=== PATIENT | male | born 1940 | race Caucasian/White ===

== ENCOUNTER 2018-01-09 17:08 | Emergency (ER) | payer OTHER, MEDICARE ==
[2018-01-09] MEDS ORDERED: OXYCODONE-ACETAMINOPHEN 5-325 MG TABLET PO ONE (17:25)
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
[2018-01-09 19:25] VITALS: BP 120/69
== END 2018-01-09 19:27 | disposition home or self-care (01) ==
LOC: ER 17:08
DX: M54.5 Low back pain (principal); M54.6 Pain in thoracic spine; R07.81 Pleurodynia; V49.40XA Driver injured in collision with unspecified motor vehicles in traffic accident, initial encounter; J81.1 Chronic pulmonary edema; E11.9 Type 2 diabetes mellitus without complications; I25.10 Atherosclerotic heart disease of native coronary artery without angina pectoris; I10 Essential (primary) hypertension; I25.2 Old myocardial infarction; Z85.118 Personal history of other malignant neoplasm of bronchus and lung; Z85.05 Personal history of malignant neoplasm of liver
CPT/HCPCS: 72110; 99284

== ENCOUNTER 2019-09-20 00:02 | Emergency (ER) | payer MEDICARE, OTHER ==
[2019-09-20 00:38] LABS: ABSOLUTE BASOPHILS # (AUTO) 0.1 10^3/uL (0.0-0.2); ABSOLUTE EOSINOPHILS # (AUTO) 0.1 10^3/uL (0.0-0.6); ABSOLUTE LYMPHOCYTES (AUTO) 1.6 10^3/uL (0.5-4.7); ABSOLUTE MONOCYTES (AUTO) 0.7 10^3/uL (0.1-1.4); ABSOLUTE NEUT (AUTO) 5.1 10^3/uL (1.7-8.2); BASOPHILS % (AUTO) 0.8 % (0-2); EOSINOPHILS % (AUTO) 0.9 % (0-6); HEMATOCRIT 52.1 % (37.9-51.0); HEMOGLOBIN 18.2 g/dL (13.5-17.0); LYMPHOCYTES % (AUTO) 21.2 % (13-45); MEAN CORPUSCULAR HEMOGLOBIN 29.5 pg (27.0-33.4); MEAN CORPUSCULAR HGB CONC 34.9 g/dL (32.0-36.0); MEAN CORPUSCULAR VOLUME 84 fl (80-97); MONOCYTES % (AUTO) 9.8 % (3-13); PLATELET COUNT 141 10^3/uL (150-450); RED BLOOD COUNT 6.17 10^6/uL (4.35-5.55); RED CELL DISTRIBUTION WIDTH 15.7 % (11.5-14.0); SEGMENTED NEUTROPHILS % (AUTO) 67.3 % (42-78); TOTAL CELLS COUNTED % (AUTO) 100 %; WHITE BLOOD COUNT 7.6 10^3/uL (4.0-10.5)
[2019-09-20 00:53] LABS: ALBUMIN 4.3 g/dL (3.5-5.0); ALKALINE PHOSPHATASE 114 U/L (38-126); ANION GAP 9 (5-19); ASPARTATE AMINO TRANSFERASE 25 U/L (17-59); BILIRUBIN,DIRECT 0.1 mg/dL (0.0-0.4); BILIRUBIN,TOTAL 1.1 mg/dL (0.2-1.3); BLOOD UREA NITROGEN 23 mg/dL (7-20); CALCIUM 9.6 mg/dL (8.4-10.2); CARBON DIOXIDE 31 mmol/L (22-30); CHLORIDE 98 mmol/L (98-107); GLUCOSE 127 mg/dL (75-110); POTASSIUM 3.5 mmol/L (3.6-5.0); TOTAL PROTEIN 7.4 g/dL (6.3-8.2)
[2019-09-20] MEDS ORDERED: IPRATROPIUM/ALBUTEROL 0.5-2.5 MG/3 ML AMPUL NEB ONE (01:03)
[2019-09-20] MEDS ORDERED: METHYLPREDNISOLONE INJ 125 MG/2 ML SDV IV ONE (01:03)
--- NOTE | 2019-09-20 01:03 | ER Document Report ---
ED General - General Chief Complaint: Shortness Of Breath Stated Complaint: TROUBLE BREATHING Time Seen by Provider: 09/20/19 00:28 Primary Care Provider: LEELEE KEATING MD [Primary Care Provider] - Follow up as needed - HPI Notes: Patient is a 79-year-old gentleman with a history of PVOD who presents to the emergency department for evaluation of shortness of breath. He states this is not a new problem for him. The patient states he was at his granddaughter's house. He started "shaking all over" and became extremely short of breath. He states tinnitus started when he felt like he had to urinate quickly. This is atypical trigger for his symptoms. He states that lasted 3 or 4 minutes. He s tates that he has these frequently, the last one was about a month ago. He states he stopped going to the emergency room or the hospital for these episodes as there was no treatment that was helpful. He was urged by his family members to come in, so he presents to the ER for further evaluation. He states that shortness of breath is at baseline. He is normally on 3 L per nasal cannula. He has had no fevers. No cough. No COVID exposures. He denies any pain with these episodes or at this time. He has been taking his medications as prescribed. He states he is seen both cardiology as well as pulmonology for these issues. He was told that it may be secondary to PVOD, or secondary to sca r tissue from his history of cancer. - Related Data Allergies/Adverse Reactions: No Known Allergies Allergy (Unverified 02/16/14 23:18) Past Medical History - General Information source: Patient - Social History Smoking Status: Former Smoker Family History: Reviewed & Not Pertinent - Past Medical History Cardiac Medical History: Reports: Hx Coronary Artery Disease, Hx Heart Attack - x2, Hx Hypercholesterolemia, Hx Hypertension Pulmonary Medical History: Reports: Other - Pulmonary venoocclusive disease Denies: Hx COPD Endocrine Medical History: Reports: Hx Diabetes Mellitus Type 2 Renal/ Medical History: Denies: Hx Peritoneal Dialysis Malignancy Medical History: Reports Hx Liver Cancer - A couple of years ago, Reports Hx Lung Cancer - Many years ago Past Surgical History: Reports: Hx Cardiac Catheterization, Hx Coronary Artery Bypass Graft - Immunizations Hx Diphtheria, Pertussis, Tetanus Vaccination: Yes Review of Systems - Review of Systems Cardiovascular: See HPI Respiratory: See HPI -: Yes All other systems reviewed and negative Physical Exam - Vital signs Vitals: Resp Pulse Ox 28 H 96 09/20/19 00:06 09/20/19 00:06 - Notes Notes: Is a very pleasant 79-year-old gentleman who appears his stated age in no acute distress. Vital signs reviewed, please refer to chart. Head is normocephalic, atraumatic. Pupils equal round, reactive to light. Neck is supple without meningismus. Heart is regular rate and rhythm. Lungs reveal diminished breath sounds with no wheezes, rales, rhonchi. Abdomen is soft, nontender, normoactive bowel sounds throughout. Extremities without cyanosis, clubbing. Posterior calves are nontender. Peripheral pulses are equal. Skin is warm and dry. Patient is awake, alert, neurological exam is nonfocal. Course - Re-evaluation Re-evalutation: 09/20/19 02:08 Patient presents to the emergency department for evaluation. He states that this is not a new problem for him. He states he is back to his baseline at this time, and insists that he wants to go home. I was able to convince him to stay for some blood work. Laboratory investigations are largely unremarkable. Patient's EKG fails to show any signs of ST elevation. The patient states he is back to baseline, believes it is all secondary to his PVOD, and feels improved. 09/20/19 02:17 I did discuss his x-ray findings with him. He states he is not had any injury to the right upper chest, denies any known history of rib fractures, and has no tenderness over that area. I explained to him that a small amount of fluid on the right side, did not have a clear etiology for this, but he has no other signs of infiltrative process. No significant leukocytosis. He does have some white blood cells in his urine. Given this as well as the urinary urgency and the linked to his shortness of breath with this, I am inclined to treat him for urinary tract infection. He is given his first dose of Keflex here and I will send him out with a prescription. He does not have a COPD history, I am not inclined to treat with steroids. He is to follow-up closely with primary care next week, have his urine rechecked. He is to return to the ER with worsening or new concerning symptoms of any sort. 09/20/19 02:25 Please note that patient did desaturate on his normal 3 L when getting up. I went back in to evaluate the patient. He rebounded quickly to 92%. Again the patient reiterates he has absolutely no symptoms different from his baseline. He still wishes to go home. He understands the importance of close follow-up. - Vital Signs Vital signs: Temp Pulse Resp BP Pulse Ox 19 118/71 95 09/20/19 02:01 09/20/19 02:01 09/20/19 02:01 - Laboratory Result Diagrams: 09/20/19 00:14 09/20/19 00:14 Laboratory results interpreted by me: 09/20/19 09/20/19 09/20/19 00:14 00:14 01:30 RBC 6.17 H Hgb 18.2 H Hct 52.1 H RDW 15.7 H Plt Count 141 L Potassium 3.5 L Carbon Dioxide 31 H BUN 23 H Creatinine 1.29 H Est GFR (MDRD) Non-Af 54 L Glucose 127 H Urine Glucose (UA) >=500 H Ur Leukocyte Esterase SMALL H - Diagnostic Test Radiology reviewed: Reports reviewed Radiology results interpreted by me: 09/20/19 02:09 Chest X-Ray 09/20/19 00:31 IMPRESSION: Small effusion-blunting at the right costophrenic angle.Fracture-defect of the right second and third lateral ribs without significant displacement. - EKG Interpretation by Me Additional EKG results interpreted by me: 09/20/19 02:26 Sinus mechanism with a rate of 99 bpm, multifocal PVCs noted. Left axis deviation, incomplete right bundle branch block. No ST elevation concerning for ischemia. No old studies available for comparison. Discharge - Discharge Clinical Impression: Urinary tract infection Qualifiers: Urinary tract infection type: site unspecified Hematuria presence: without hematuria Qualified Code(s): N39.0 - Urinary tract infection, site not specified Dyspnea Qualifiers: Dyspnea type: shortness of breath Qualified Code(s): R06.02 - Shortness of breath Condition: Stable Disposition: HOME, SELF-CARE Instructions: Cephalexin ([facility]), Dyspnea, Nonspecific ([facility]), Urinary Tract Infection ([facility]) Additional Instructions: Follow-up with your primary care provider next week. Please take all the Keflex as prescribed until it is gone. Have your urine rechecked to make sure that the infection has cleared. If you develop worsening or new concerning symptoms of any sort, please return immediately to the emergency department for evaluation. Prescriptions: Cephalexin Monohydrate [Keflex 500 mg Capsule] 500 mg PO QID #20 capsule Referrals: LEELEE KEATING MD [Primary Care Provider] - Follow up as needed
--- NOTE | 2019-09-20 01:34 | RADIOLOGY REPORT (SQ) ---
EXAM DESCRIPTION: XR CHEST 1 VIEW COMPLETED DATE/TME: 09/20/2019 00:31 CLINICAL HISTORY: 79 years Male, sob COMPARISON: One day prior. NUMBER OF VIEWS/TECHNIQUE: 1/AP FINDINGS: Fracture-defect of the right second and third lateral ribs without significant displacement. Small blunting-effusion at the right costophrenic angle. Moderate right lung volume.Sternotomy. Cardiac/mediastinal hardware/clips. Clear lung nguyen. Normal cardiac silhouette size. No pneumothorax. IMPRESSION: Small effusion-blunting at the right costophrenic angle.Fracture-defect of the right second and third lateral ribs without significant displacement.
[2019-09-20 01:58] LABS: APPEARANCE,URINE CLEAR; BILIRUBIN,URINE NEGATIVE (NEGATIVE); COLOR,URINE YELLOW; GLUCOSE, URINE >=500 mg/dL (NEGATIVE); KETONES,URINE NEGATIVE (NEGATIVE); LEUKOCYTE ESTERASE,URINE SMALL (NEGATIVE); NITRITE,URINE NEGATIVE (NEGATIVE); PROTEIN,URINE NEGATIVE (NEGATIVE); URINE SPECIFIC GRAVITY 1.021; UROBILINOGEN,URINE NEGATIVE mg/dL (<2.0)
[2019-09-20] MEDS ORDERED: CEPHALEXIN 500 MG CAPSULE PO ONE (02:16)
[2019-09-20 02:18] VITALS: BP 118/71
--- NOTE | 2019-09-21 07:24 | EKG REPORT ---
SEVERITY:- ABNORMAL ECG - SINUS TACHYCARDIA MULTIFORM VENTRICULAR PREMATURE COMPLEXES INFERIOR INFARCT, AGE INDETERMINATE BORDERLINE R WAVE PROGRESSION, ANTERIOR LEADS : Confirmed by: Luiz Freeman 21-Sep-2019 07:23:50
== END 2019-09-20 03:10 | disposition home or self-care (01) ==
LOC: ER 00:02
DX: N39.0 Urinary tract infection, site not specified (principal); R06.02 Shortness of breath; R25.1 Tremor, unspecified; H93.19 Tinnitus, unspecified ear; Z99.81 Dependence on supplemental oxygen; Z87.891 Personal history of nicotine dependence; I25.10 Atherosclerotic heart disease of native coronary artery without angina pectoris; I25.2 Old myocardial infarction; I10 Essential (primary) hypertension; E11.9 Type 2 diabetes mellitus without complications; Z87.81 Personal history of (healed) traumatic fracture
CPT/HCPCS: 93005; 94640; 99285; 96374; 36415; 87086; 85025; 80053; 81001; 84484; 71045; 93010; A9270 ×2; J2930; J7620